=== PATIENT | male | born 1975 | race Caucasian/White ===

== ENCOUNTER → 2020-09-04 00:20 | Outpatient (CLI) | payer OTHER, SELFPAY ==
[2020-09-04 21:18] LABS: SARS-CoV-2 RNA PCR Negative
== END ==
PROVIDERS: PCP Family Medicine Adolescent Medicine; Visit Provider Internal Medicine Gastroenterology
DX: Z01.812 Encounter for preprocedural laboratory examination (principal); Z20.822 Contact with and (suspected) exposure to COVID-19
CPT/HCPCS: C9803; U0003; U0005

== ENCOUNTER 2020-09-07 00:21 | Day surgery (SDC) | payer OTHER, SELFPAY ==
[2020-08-22 14:44] VITALS: BMI 23.2
[2020-09-07 10:06] VITALS: BP 138/93; PULSE 79; RESP 16; TEMP 37.1; O2SAT 98
[2020-09-07] MEDS: LACTATED RINGERS 1,000 ML 150 ML IV CONT (10:16)
--- NOTE | 2020-09-07 10:59 | WPDANESEPPF ---
Anes - Initial Pre Proc Eval Procedure: Operation Date: 09/07/20 11:15 Proposed Procedures p Colonoscopy - Naseem Huertas MD Date/Time: 09/07/20 10:59 Surgeon: Naseem Huertas MD Pre Op Diagnosis: ulcerative colitis Patient Data Age: 44 Gender: M Height: 6 ft 2 in Weight: 79.5 kg Last Vital Signs Temp 37.1 C 09/07/20 10:06 Pulse 79 09/07/20 10:06 Resp 16 09/07/20 10:06 BP 138/93 H 09/07/20 10:06 Pulse Ox 98 09/07/20 10:06 Allergies Allergy/AdvReac Type Severity Reaction Status Date / Time Penicillins Allergy Unknown Unknown Unverified 09/07/20 10:04 Home Medications Medication Instructions Recorded Confirmed Type sodium,potassium,mag sulfates 17.5 See Rx Instructions PO .COMPLEX 08/20/20 Rx gram-3.13 gram-1.6 gram oral soln #354 ml balsalazide 750 mg PO DAILY 08/22/20 09/07/20 History Patient hx anesthesia problems: none Family hx anesthesia problems: none [facility], [facility] Past Medical History Medical History (Updated 09/07/20 @ 10:59 by Jan Gauthier MD) Ulcerative colitis Surgical History Surgical History (Updated 09/07/20 @ 11:00 by Jan Gauthier MD) H/O arthroscopic knee surgery H/O lumbosacral spine surgery Social History Social History Smoking packs per day: 1 Smoking cigarettes per day: 20.0 Years smoked: 20 Smoking pack-years: 20.00 Smoking status: Former smoker Tobacco type: cigarettes and e-cigarettes/vaping Alcohol intake: never Substance use: current Substance use type: does not use Living arrangements: with family Spiritual care concerns: No Anes - Eval Final PreProcedure Day of Procedure 09/07/20 10:59 Patient weight: normal Heart: regular rate and rhythm Lungs: clear to auscultation Airway: Mallampati scale class II Neurological: alert and oriented Last oral intake: >/= 8 hours ASA classification: II Emergent: no Anesthetic plan: proceed Anesthesia type and monitoring: general GIVS and standard monitoring Informed Consent: The patient's anesthetic plan and its attendant risks and benefits were discussed with the patient/family/POA. Questions were solicited and answers provided to the satisfaction of the patient/family/POA.
--- NOTE | 2020-09-07 11:20 | PM.HPGS ---
History of Present Illness History of Present Illness Consent: Risks, benefits, and alternatives have been discussed and questions answered. Patient agrees to proceed with procedure. Chief complaint: ulcerative colitis Narrative: Stan Green is a 44 year old male with diagnosed of UC (pancolitis) in 2013, he is asymptomatic with balsalazide, here to reassess again Review of Systems Constitutional: Constitutional: Denies headache(s) and Denies weakness Eyes: Eyes: Denies blurry vision ENT: Reports Normal hearing present, Denies headache(s) and Denies neck pain Cardiovascular: Cardiovascular: Denies chest pain and Denies dyspnea Respiratory: Respiratory: Denies dyspnea Gastrointestinal: Gastrointestinal: Reports no additional gastrointestinal complaints Genitourinary: Genitourinary: Denies dysuria Musculoskeletal: Musculoskeletal: Denies neck pain Integumentary/Breasts: Skin/Breast: Denies dry skin Neurologic: Reports Normal hearing present, Denies headache(s) and Denies weakness Psychiatric: Psychiatric: Denies anxiety Endocrine: Endocrine: Denies change in body appearance Hematologic/Lymphatic: Hematologic/Lymphatic: Denies easy bleeding Allergic/Immunologic: Allergic/Immunologic: Denies urticaria PMFSH Past Medical History Medical History (Updated 09/07/20 @ 11:21 by Naseem Huertas MD) Ulcerative colitis Surgical History Surgical History (Updated 09/07/20 @ 11:00 by Jan Gauthier MD) H/O arthroscopic knee surgery H/O lumbosacral spine surgery Social History Social History Smoking packs per day: 1 Smoking cigarettes per day: 20.0 Years smoked: 20 Smoking pack-years: 20.00 Smoking status: Former smoker Tobacco type: cigarettes and e-cigarettes/vaping Alcohol intake: never Substance use: current Substance use type: does not use Living arrangements: with family Spiritual care concerns: No Meds Home Medications and Allergies Home Medications Medication Instructions Recorded Confirmed Type sodium,potassium,mag sulfates 17.5 See Rx Instructions PO .COMPLEX 08/20/20 Rx gram-3.13 gram-1.6 gram oral soln #354 ml balsalazide 750 mg PO DAILY 08/22/20 09/07/20 History Allergies Allergy/AdvReac Type Severity Reaction Status Date / Time Penicillins Allergy Unknown Unknown Unverified 09/07/20 10:04 Vital Signs Vital Signs - 24 hr 09/07/20 10:06 Temperature 98.8 F Pulse Rate 79 Respiratory Rate 16 Blood Pressure 138/93 H Pulse Oximetry 98 Exam Const: General: comfortable and no acute distress HENMT: General nose exam: Normal nares present Eyes: General: appearance normal, both eyes and all related structures Neck: Neck: no JVD Resp: Auscultation: clear to auscultation bilaterally Cardio: Rate: regular rate Rhythm: regular rhythm GI: Inspection: non-distended GI Palp: Yes Soft to palpation Skin: General skin exam: normal color Neuro: General: gait normal Speech: normal speech Extrem: General: normal to inspection Psych: Mental Status: mental status grossly normal Assessment and Plan Assessment and plan (1) Ulcerative colitis: Code(s): K51.90 - Ulcerative colitis, unspecified, without complications Status: Inactive Assessment and Plan: doing well with balsalazide, will proceed with colonoscopy
[2020-09-07 11:38] VITALS: BP 115/72; PULSE 70; RESP 17; O2SAT 97
[2020-09-07 11:48] VITALS: BP 101/71; PULSE 68; RESP 16; O2SAT 98
[2020-09-07 11:58] VITALS: BP 130/84; PULSE 68; RESP 19; O2SAT 100
== END 2020-09-07 12:10 | disposition home or self-care (01) ==
PROVIDERS: PCP Family Medicine Adolescent Medicine; Visit Provider Internal Medicine Gastroenterology
PROC: 0DJD8ZZ Inspection of Lower Intestinal Tract, Via Natural or Artificial Opening Endoscopic (ICD-10-PCS; CPT 45378; principal; 2020-09-07 11:15)
DX: K51.90 Ulcerative colitis, unspecified, without complications (principal); K51.30 Ulcerative (chronic) rectosigmoiditis without complications; K57.30 Diverticulosis of large intestine without perforation or abscess without bleeding; Z87.891 Personal history of nicotine dependence
CPT/HCPCS: 45380; 88305; C9803; J2704; J7120; U0003; U0005

== ENCOUNTER 2023-05-28 01:33 | Day surgery (SDC) | payer OTHER, SELFPAY ==
[2023-05-18 14:43] VITALS: BMI 24.5
--- NOTE | 2023-05-26 10:04 | SUR.PREOP ---
Patient called regarding upcoming procedure. Message left on patient's voicemail regrading preop instructions, appointment times, and procedure prep.
[2023-05-28 08:15] VITALS: BP 130/97; PULSE 77; RESP 18; TEMP 37; O2SAT 98; BMI 25.2
[2023-05-28] MEDS: LACTATED RINGERS 1,000 ML 150 ML IV CONT (08:42)
--- NOTE | 2023-05-28 09:04 | PM.HPGS ---
History of Present Illness History of Present Illness Consent: Risks, benefits, and alternatives have been discussed and questions answered. Patient agrees to proceed with procedure. Chief complaint: Ulcerative colitis Narrative: Stan Green is a 47 year old male Presents for screening, surveillance colonoscopy. Patient diagnosed with ulcerative colitis since 2013. Patient reports symptoms are very stable since being on balsalazide. He denies any abdominal pain. Bowel habits are normal. Does have occasional rectal anal discomfort associated with hemorrhoids. Patient presents today for screening colonoscopy. Review of Systems Review of Systems: Review of systems noncontributory. [facility] Past Medical History Medical History Ulcerative colitis Surgical History Surgical History H/O arthroscopic knee surgery H/O lumbosacral spine surgery Social History Social History Smoking packs per day: 1 Smoking cigarettes per day: 20.0 Years smoked: 20 Smoking pack-years: 20.00 Smoking status: Former smoker Tobacco type: cigarettes Alcohol intake: former Drinks per week: 0 Substance use: former Substance use type: marijuana Living arrangements: with family Spiritual care concerns: No Meds Home Medications and Allergies Home Medications Medication Instructions Recorded Confirmed Type balsalazide 750 mg capsule 2,250 mg PO DAILY #270 caps 03/04/23 05/28/23 Rx Allergies Allergy/AdvReac Type Severity Reaction Status Date / Time Penicillins Allergy Unknown Unknown Verified 05/28/23 08:20 Vital Signs Vital Signs - 24 hr 05/28/23 08:15 Temperature 98.6 F Pulse Rate 77 Respiratory Rate 18 Blood Pressure 130/97 H Pulse Oximetry 98 Oxygen Delivery Room Air Exam Narrative: Physical exam reveals patient to be alert. Vital signs stable. HEENT exam is unremarkable. Patient is anicteric. Lungs are clear to auscultation and percussion. Heart is without murmur or extra sounds. Abdomen bowel sounds are present soft nontender with no organomegaly. Digital external rectal exam suggest hemorrhoids. Assessment and Plan Assessment and plan (1) Ulcerative colitis: Code(s): K51.90 - Ulcerative colitis, unspecified, without complications Status: Acute Assessment and Plan: Patient with known history of ulcerative colitis. Currently felt stable on balsalazide. Plan for screening colonoscopy now consider this at 3 year intervals. Fiber supplements may help with hemorrhoids as may preparation H or Anusol.
--- NOTE | 2023-05-28 09:26 | WPDANESEPPF ---
Anes - Initial Pre Proc Eval Procedure: Operation Date: 05/28/23 09:30 Proposed Procedures p Colonoscopy - Danilo Fernandes MD Date/Time: 05/28/23 09:26 Surgeon: Danilo Fernandes MD Pre Op Diagnosis: Ulcerative colitis Patient Data Age: 47 Gender: M Height: 1.88 m Weight: 89 kg Last Vital Signs Temp 37.0 C 05/28/23 08:15 Pulse 77 05/28/23 08:15 Resp 18 05/28/23 08:15 BP 130/97 H 05/28/23 08:15 Pulse Ox 98 05/28/23 08:15 O2 Del Method Room Air 05/28/23 08:15 Allergies Allergy/AdvReac Type Severity Reaction Status Date / Time Penicillins Allergy Unknown Unknown Verified 05/28/23 08:20 Home Medications Medication Instructions Recorded Confirmed Type balsalazide 750 mg capsule 2,250 mg PO DAILY #270 caps 03/04/23 05/28/23 Rx Patient hx anesthesia problems: none Family hx anesthesia problems: none Results Review: All pre-operative results and documents have been reviewed as part of the pre-operative evaluation. [facility] Past Medical History Medical History Ulcerative colitis Surgical History Surgical History H/O arthroscopic knee surgery H/O lumbosacral spine surgery Social History Social History Smoking packs per day: 1 Smoking cigarettes per day: 20.0 Years smoked: 20 Smoking pack-years: 20.00 Smoking status: Former smoker Tobacco type: cigarettes Alcohol intake: former Drinks per week: 0 Substance use: former Substance use type: marijuana Living arrangements: with family Spiritual care concerns: No Anes - Eval Final PreProcedure Day of Procedure 05/28/23 09:26 Patient weight: normal Heart: regular rate and rhythm Lungs: clear to auscultation Airway: Mallampati scale class II Neurological: alert and oriented Last oral intake: >/= 8 hours ASA classification: II Emergent: no Anesthetic plan: proceed Anesthesia type and monitoring: general GIVS and standard monitoring Results Review: All pre-operative results and documents have been reviewed as part of the pre-operative evaluation. Informed Consent: The patient's anesthetic plan and its attendant risks and benefits were discussed with the patient/family/POA. Questions were solicited and answers provided to the satisfaction of the patient/family/POA.
[2023-05-28 10:29] VITALS: BP 105/69; PULSE 64; RESP 22; O2SAT 99
[2023-05-28 10:39] VITALS: BP 112/68; PULSE 64; RESP 18; O2SAT 100
[2023-05-28 10:49] VITALS: BP 126/87; PULSE 62; RESP 18; O2SAT 100
== END 2023-05-28 10:53 | disposition home or self-care (01) ==
PROVIDERS: PCP Family Medicine Adolescent Medicine; Visit Provider Internal Medicine Gastroenterology
PROC: 0DJD8ZZ Inspection of Lower Intestinal Tract, Via Natural or Artificial Opening Endoscopic (ICD-10-PCS; CPT 45378; principal; 2023-05-28 09:30)
DX: K51.90 Ulcerative colitis, unspecified, without complications (principal); K63.5 Polyp of colon; K64.8 Other hemorrhoids; K63.89 Other specified diseases of intestine; Z87.891 Personal history of nicotine dependence
CPT/HCPCS: 45385; 45380; 88305; J2704; J7120